=== PATIENT | female | born 1970 | race Caucasian/White ===

== ENCOUNTER → 2016-05-27 | Outpatient (CLI) | payer OTHER ==
[~2016-05-27] MED LIST: CHANTIX0.5 MG PO; DIFLUCAN150 MG PO
[2016-05-27 16:52] LABS: LYMPH # 2.8 K/mm3 (0.7-4.5); LYMPH % 33.1 % (10-50.0)
[2016-05-27 17:02] LABS: HEMOGLOBIN 14.6 g/dL (12.2-16.2)
[2016-05-27 18:46] LABS: BILIRUBIN, INDIRECT 0.13 mg/dL (0-0.9)
== END ==
LOC: LAB 16:41
PROVIDERS: Internal Medicine
DX: R10.13 Epigastric pain (principal)

== ENCOUNTER 2016-09-16 07:48 | Day surgery (SDC) | payer OTHER ==
[~2016-09-16] VITALS: Ht 165.1 cm; Wt 76.7 kg
--- NOTE | 2016-09-16 10:12 | Operative Note ---
Upper GI Endoscopy Procedure date: 09/16/16 Date of : 72 Procedure:Upper GI Endoscopy Esophagogastroduodenoscopy with cold biopsies Indications: Mrs. Davis is a 45-year-old female with RIGHT upper quadrant abdominal pain. The patient is here for diagnostic panendoscopy. The patient did have ERCP followed by cholecystectomy secondary to gallstones 6-7 years ago (myself and Dr. Stephens). The patient did very well but has had recurrence of RIGHT upper quadrant abdominal pain. The patient has been on Dexilant and Zantac 300 50 mg by mouth twice a day for her gastroesophageal reflux disease and dyspepsia. Her ultrasound showed a small hepatic hemangioma in the RIGHT lobe and had mild biliary ductal dilation secondary to prior cholecystectomy. The patient had an upper gastrointestinal series on September 17 that showed a very small sliding hiatal hernia and reflux with mild gastroduodenitis. The patient does have moderate chronic constipation. The patient does describe her pain as trapped air. She has some gassiness and bloating. She reports moderate stress. Her father had Crohn's disease. She reports no rectal bleeding, melena or weight loss. She has no family history of colon cancer. Performing Provider: Rosa Still MD Referring Provider: Harlan Stovall M.D. Sedation: MAC sedation Procedure: Prior to the procedure, a history and physical exam was performed, and patients medications and allergies were reviewed. The risks and benefits of the procedure and the sedation options and risks were discussed with the patient. All questions were answered and informed consent was obtained. The patient was brought to the procedure room. Patient identification and proposed procedure were verified by the physician and the nurse. The patient was placed in a left lateral decubitus position and the scope was passed under direct vision. Throughout the procedure, the patient's blood pressure, pulse, and oxygen saturations were monitored continuously. The endoscope was introduced through the mouth, and advanced to the second part of duodenum. The upper GI endoscopy was accomplished without difficulty. The patient tolerated the procedure well. Findings: The scope was passed directly into the upper esophagus and advanced to the third portion of the duodenum. The post bulbar duodenum and duodenal bulb were normal with normal mucosa and conniventes. The scope was withdrawn through a normal duodenal bulb and pylorus into the stomach. There was evidence of linear reactive gastritis with some bile reflux. The remainder of the antrum, body and fundus of the stomach were grossly normal. Upon retroflexion there was a very small sliding hiatal hernia. 2 biopsies were taken in the antrum and along the lesser curvature for histology and/or CLOtest. The scope was then withdrawn into the esophagus. There was no evidence of reflux esophagitis. There was a mid esophageal polyp that was 6 mm and removed via cold biopsy. The remainder of the esophageal mucosa was normal. Immediate complications: None EBL (ml): 0 Impression: 1. Diminutive esophageal polyprule out esophageal papilloma 2. Nonerosive gastroesophageal reflux disease with very small sliding hiatal hernia 3. 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 We will proceed with colonoscopy. I will follow up the biopsies. We will discuss dietary measures and treatment options subsequently. We may also consider ERCP to repeat and evaluate biliary system based upon the biliary ductal dilation. at 1012
--- NOTE | 2016-09-16 10:15 | Operative Note ---
Colonoscopy ([facility]) Procedure date: 09/16/16 Date of : 72 Procedure:Colonoscopy Colonoscopy with cold snare polypectomy Indications: Mrs. Davis is a 45-year-old female with RIGHT upper quadrant abdominal pain. The patient is here for diagnostic panendoscopy. The patient did have ERCP followed by cholecystectomy secondary to gallstones 6-7 years ago (myself and Dr. Stephens). The patient did very well but has had recurrence of RIGHT upper quadrant abdominal pain. The patient has been on Dexilant and Zantac 300 50 mg by mouth twice a day for her gastroesophageal reflux disease and dyspepsia. Her ultrasound showed a small hepatic hemangioma in the RIGHT lobe and had mild biliary ductal dilation secondary to prior cholecystectomy. The patient had an upper gastrointestinal series on September 17 that showed a very small sliding hiatal hernia and reflux with mild gastroduodenitis. The patient does have moderate chronic constipation. The patient does describe her pain as trapped air. She has some gassiness and bloating. She reports moderate stress. Her father had Crohn's disease. She reports no rectal bleeding, melena or weight loss. She has no family history of colon cancer. Performing Provider: Rosa Still MD Referrring Provider: Harlan Stovall M.D. Sedation: MAC sedation Procedure: Prior to the procedure, a history and physical exam was performed, and patient medications and allergies were reviewed. The risks and benefits of the procedure and the sedation options and risks were discussed with the patient. All questions were answered and informed consent was obtained. Patient identification and proposed procedure were verified by the physician and the nurse. The patient was placed in a left lateral decubitus position. Throughout the procedure, the patient's blood pressure, pulse, and oxygen saturations were monitored continuously. Findings: On digital rectal examination there was normal rectal tone. There were no external hemorrhoids but there were small external hemorrhoidal tags. The colonoscope was introduced through the anal canal to the rectum and advanced to the cecum. The ileocecal valve and appendiceal orifice were identified. The scope was advanced a short distance into the ileum which appeared grossly normal. The scope was then withdrawn into the colon. There were 6 colon polyps identified in the ascending 1, descending 1, sigmoid 2, rectosigmoid 1 and rectum 1. These ranged in size from 5-12 mm and were all removed via cold snare polypectomy. There were scattered diverticuli throughout the descending and sigmoid colon (LEFT colon). The rectum itself was normal. Upon retroflexion within the rectum there were grade 1 internal hemorrhoids. Impressions: 1. Colonic polyps 6rule out serrated adenomatous polyps 2. Left-sided diverticulosis 3. Grade 1 internal hemorrhoids Recommendations: I do feel that the patient has hepatic flexure syndrome. We will discuss additional dietary measures and treatment options. I will follow up the polyp histology and recommend repeat screening/surveillance colonoscopy again in 1-3 years if these are larger serrated adenomas. Most of these polyps were 10 mm or greater. Complications: None EBL (ml): 0 at 1010
[2016-09-16 11:34] VITALS: BP 148/83
== END 2016-09-16 11:15 | disposition home or self-care (01) ==
LOC: SDC 07:48
PROVIDERS: Internal Medicine Gastroenterology
PROC: 0DBP8ZX Excision of Rectum, Via Natural or Artificial Opening Endoscopic, Diagnostic (ICD-10-PCS; 2016-09-16)
PROC: 0DBN8ZX Excision of Sigmoid Colon, Via Natural or Artificial Opening Endoscopic, Diagnostic (ICD-10-PCS; 2016-09-16)
PROC: 0DBM8ZX Excision of Descending Colon, Via Natural or Artificial Opening Endoscopic, Diagnostic (ICD-10-PCS; 2016-09-16)
PROC: 0DB28ZX Excision of Middle Esophagus, Via Natural or Artificial Opening Endoscopic, Diagnostic (ICD-10-PCS; 2016-09-16)
PROC: 0DB78ZX Excision of Stomach, Pylorus, Via Natural or Artificial Opening Endoscopic, Diagnostic (ICD-10-PCS; 2016-09-16)
PROC: 0DBK8ZX Excision of Ascending Colon, Via Natural or Artificial Opening Endoscopic, Diagnostic (ICD-10-PCS; principal; 2016-09-16 09:00)
DX: R10.11 Right upper quadrant pain (principal); D12.2 Benign neoplasm of ascending colon; D12.4 Benign neoplasm of descending colon; D12.5 Benign neoplasm of sigmoid colon; D12.7 Benign neoplasm of rectosigmoid junction; K62.1 Rectal polyp; K57.30 Diverticulosis of large intestine without perforation or abscess without bleeding; K64.0 First degree hemorrhoids; K59.8 Other specified functional intestinal disorders; K31.7 Polyp of stomach and duodenum; D13.0 Benign neoplasm of esophagus; K21.9 Gastro-esophageal reflux disease without esophagitis; K44.9 Diaphragmatic hernia without obstruction or gangrene